=== PATIENT | male | born 1945 | race Caucasian/White ===

== ENCOUNTER 2020-08-03 15:08 | Emergency (ER) | payer OTHER, BC ==
[~2020-08-03] VITALS: Ht 182.9 cm; Wt 99.8 kg
[2020-08-03 15:37] VITALS: Ht 182.9 cm; Wt 99.8 kg
[2020-08-03 19:17] VITALS: BP 163/65
== END 2020-08-03 19:17 | disposition home or self-care (01) ==
LOC: ED 15:08
DX: S42.402A Unspecified fracture of lower end of left humerus, initial encounter for closed fracture (principal); S52.022A Displaced fracture of olecranon process without intraarticular extension of left ulna, initial encounter for closed fracture; E11.9 Type 2 diabetes mellitus without complications; E78.00 Pure hypercholesterolemia, unspecified; W01.0XXA Fall on same level from slipping, tripping and stumbling without subsequent striking against object, initial encounter; Y93.89 Activity, other specified; Y92.89 Other specified places as the place of occurrence of the external cause; Y99.8 Other external cause status
CPT/HCPCS: J3010